=== PATIENT | male | born 1970 | race Caucasian/White ===

== ENCOUNTER 2018-01-13 12:55 | Emergency (ER) | payer MEDICAID ==
[~2018-01-13] VITALS: Ht 180.3 cm; Wt 74.8 kg
[2018-01-13 13:18] VITALS: BP 122/80
[2018-01-13] MEDS ORDERED: ROBAXIN500 MG PO (13:41)
[2018-01-13] MEDS ORDERED: LIDOCAINE700 M1 TP (13:41)
[2018-01-13] MEDS ORDERED: IBUPROFEN600 MG ORAL (13:41)
--- NOTE | 2018-01-13 13:41 | Emergency Room Report ---
History of Present Illness General Chief Complaint: Lower Back Pain or Injury Present Illness HPI 47-year-old male patient presents ER complaining of lower back spasm for the past 4 days. 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 Reports was improving until yesterday when the pain returned and increased. Denies bowel or bladder incontinence. Denies pain radiating down his back. Reports pain worse with movement. Denies fever, chest pain, shortness of breath, abdominal pain. states it feels like a "charley horse". Allergies: Coded Allergies: No Known Allergies (Unverified , 01/13/18) Patient History Past Medical History: see triage record Reviewed Nursing Documentation: PMH: Agreed; PSxH: Agreed Review of Systems All Other Systems: negative except mentioned in HPI Physical Exam Vital Signs Date Time Temp Pulse Resp B/P (MAP) Pulse Ox O2 Delivery O2 Flow Rate FiO2 01/13/18 13:18 98.0 88 16 122/80 100 Room Air 98.1 Sp02 EP Interpretation: reviewed, normal General Appearance: well appearing, no apparent distress, alert, GCS 15, non- toxic Head: normocephalic, atraumatic Eyes: bilateral eye normal inspection, bilateral eye PERRL ENT: hearing grossly normal, normal pharynx, no angioedema, normal voice, uvula midline, moist mucus membranes Neck: full range of motion Respiratory: lungs clear, normal breath sounds, no rhonchi, no respiratory distress, no accessory muscle use, no wheezing, speaking full sentences Cardiovascular #1: regular rate, rhythm, no edema Gastrointestinal: non tender, soft, no mass, non-distended, no guarding, no rebound Genitourinary: no CVA tenderness Musculoskeletal: back normal - no bony tenderness or spinous process depression , digits/nails normal, gait/station normal, normal range of motion, tender - lumbosacral region bilaterally Neurologic: alert, oriented x3, responsive, motor strength/tone normal, SLR negative, sensory intact Skin: no rash Medical Decision Making PA Attestation Dr. Hyatt is my supervising Physician whom patient management has been discussed with. Diagnostic Impression: Primary Impression: Back muscle spasm ER Course Pt presents to ED c/o back pain. DDX considered but are not limited to sprain, strain, cauda equine, epidural abscess, AAA, spinal cord compression, kidney stones. Low suspicion for cauda equina, no bowel or bladder incontinence or retention. No fever, nontoxic appearing, no radiation of pain, low suspicion for epidural mass. No abdominal pain, no blood pressure elevation, nontoxic appearing, low suspicion for AAA. VITAL SIGNS are WNL, patient is afebrile Ordered pain medication, imaging, labs. ER COURSE: Pain medication provided. Provided with pain medication, muscle relaxant medication patch in ER.. no acute injury or trauma require x-ray at this time, no bony crepitus sputum process tenderness, suspicion for fracture, pain micrococcus plan muscular spasm. Followup with pain management and/or PT. Request referral from PCP. Followup wtih PCP for further MRI and/or CT imaging as needed. patient reports symptoms improved while in the ER. DISCHARGE: -Rx provided for ibuprofen -Rx provided for Lidocaine patch -Rx provided for Robaxin. SE may cause drowsiness, do not take prior to drinking , driving, or operating he[employer]ang [employer]ian [employer] machinery. At this time pt. is stable for d/c to home. At this time patient is resting comfortably, in no acute distress, nontoxic appearing, smiling and talking without difficulty. Will provide printed patient care instructions, and any necessary prescriptions. Patient instructed to follow with primary care provider for further treatment and referral as needed. Care plan and follow up instructions have been discussed with the patient prior to discharge. Patient reports understanding and agreement to treatment plan. Patient questions asked and answered. ER precautions given, patient instructed to return to ER immediately for any new or worsening of symptoms. - Please note that this Emergency Department Report was dictated using [employer] education professor technology software, occasionally this can lead to erroneous entry secondary to interpretation by the dictation equipment. Last Vital Signs Date Time Temp Pulse Resp B/P (MAP) Pulse Ox O2 Delivery O2 Flow Rate FiO2 01/13/18 13:18 98.0 88 16 122/80 100 Room Air 98.1 Status: improved Disposition: HOME, SELF-CARE Condition: Stable Scripts Methocarbamol* (ROBAXIN*) 500 Mg Tablet 500 MG PO TID, #21 TAB 0 Refills Prov: Niall Martinez P.A. 01/13/18 Ibuprofen* (MOTRIN*) 600 Mg Tablet 600 MG ORAL Q8H PRN for For Pain, #30 TAB 0 Refills Prov: Niall Martniez P.A. 01/13/18 Lidocaine (Lidocaine) 1 Each Adh..patch 5 % TP DAILY for 7 Days, #7 PATCH Prov: Niall Martinez 01/13/18 Patient Instructions: Lumbosacral Strain, Muscle Cramps and Spasms, Easy-to- Read Additional Instructions: Patient instructed to follow up with primary care provider 3-5 and discuss further referral and imaging at that time. Patient instructed on rest, ice and heat. Do not take muscle relaxant prior to drinking, driving, or operating heavy machinery. Take medications as directed. Patient questions asked and answered. ER precautions given, patient instructed to return to ER immediately for any new or worsening of symptoms. Niall Martinez Jan 13, 2018 13:41
[2018-01-13] MEDS ORDERED: Methocarbamol 500mg tab ORAL ONE (13:45)
[2018-01-13] MEDS ORDERED: Ketorolac 30mg Inj IM ONE (13:45)
[2018-01-13 14:15] VITALS: BP 118/78
== END 2018-01-13 14:15 | disposition home or self-care (01) ==
LOC: EMR 13:45
DX: M62.830 Muscle spasm of back (principal)
CPT/HCPCS: 96372; 99283; J1885